=== PATIENT | male | born 1965 | race African-American/Black ===

== ENCOUNTER 2024-08-05 08:46 | Emergency (ER) | payer OTHER, SELFPAY ==
[2024-08-05] MEDS ORDERED: Ketorolac Tromethamine 30 MG (1 mL) VIAL ONE (10:32)
== END 2024-08-05 10:47 | disposition home or self-care (01) ==
LOC: CSHERS 08:46
DX: S46.002A Unspecified injury of muscle(s) and tendon(s) of the rotator cuff of left shoulder, initial encounter (principal); X50.0XXA Overexertion from strenuous movement or load, initial encounter; Y93.89 Activity, other specified
CPT/HCPCS: 96372; 99283; J1885